=== PATIENT | female | born 1960 | race Caucasian/White ===

== ENCOUNTER → 2022-09-04 | Outpatient (CLI) | payer OTHER ==
--- NOTE | 2022-09-01 13:11 | NUR ---
LMOM WITH INSTRUCTIONS AND CALL BACK NUMBER
[~2022-09-04] VITALS: Ht 157.5 cm; Wt 73.9 kg
[~2022-09-04] MED LIST: GRALISE300 MG PO; HCTZ 25MG TAB25 MG PO; MOTRIN 800800 MG/TAB PO; ZESTRIL40 MG PO
[2022-09-04 08:45] VITALS: BP 156/76; PULSE 102; TEMP 98
[2022-09-04 09:30] VITALS: BP 134/88; PULSE 88
== END ==
LOC: COL.RAD 08:16
DX: M54.16 Radiculopathy, lumbar region (principal)
CPT/HCPCS: J3301

== ENCOUNTER → 2022-09-18 | Outpatient (CLI) | payer OTHER ==
[~2022-09-18] VITALS: Ht 157.5 cm; Wt 71.2 kg
[2022-09-18 12:40] VITALS: BP 142/94; PULSE 101; TEMP 98.4
[2022-09-18 12:41] VITALS: BP 142/94; PULSE 101; TEMP 98.4
[2022-09-18 13:20] VITALS: BP 145/80; PULSE 100
== END ==
LOC: COL.RAD 12:10
DX: M54.16 Radiculopathy, lumbar region (principal)
CPT/HCPCS: J3301

== ENCOUNTER → 2023-04-21 | Outpatient (CLI) | payer OTHER | LOC: MHCPAIN 14:31 | DX: M47.817 Spondylosis without myelopathy or radiculopathy, lumbosacral region (principal); M54.50 Low back pain, unspecified; I10 Essential (primary) hypertension; I25.10 Atherosclerotic heart disease of native coronary artery without angina pectoris; Z79.01 Long term (current) use of anticoagulants; E11.9 Type 2 diabetes mellitus without complications; Z79.4 Long term (current) use of insulin | CPT/HCPCS: G0463 ==

== ENCOUNTER → 2023-08-31 | Outpatient (CLI) | payer BC ==
[~2023-08-31] MED LIST changes: +Lidocaine PF 2% (20 MG/ML) 5 ML VIAL ONE; +Midazolam 2 MG/2 ML VIAL ONE; +fentaNYL 50 MCG/ML 2 ML VIAL ONE
== END ==
LOC: MHCPAIN 11:10
DX: M47.817 Spondylosis without myelopathy or radiculopathy, lumbosacral region (principal); M54.50 Low back pain, unspecified
CPT/HCPCS: J0665; J2250; J3010